=== PATIENT | female | born 1950 | race Caucasian/White ===

== ENCOUNTER 2017-02-11 17:12 | Inpatient (IN) | payer OTHER ==
[2017-02-11 17:24] LABS: BASOPHIL 0.8 % (0-2.0); EOSINOPHIL 2.6 % (0-4.5); MCH 32.3 pg (25.7-33.7); MCHC 33.2 g/dl (32.0-36.0); MEAN CELL VOLUME 97.2 fl (80-96); MEAN PLT VOLUME 8.9 fl (7.5-11.1); NEUTROPHILS 66.2 % (42.8-82.8); PLATELET COUNT 253 K/MM3 (134-434); RDW 14.6 % (11.6-15.6); WHITE BLOOD COUNT 6.7 K/mm3 (4.0-10.0)
[2017-02-11 17:35] VITALS: BMI 28.3
[2017-02-11 17:36] LABS: INR 1.07 (0.82-1.09); PROTHROMBIN TIME (PATIENT) 11.8 SEC (9.98-11.88)
[2017-02-11 17:46] LABS: ALBUMIN 3.8 g/dl (3.4-5.0); ALK PHOS 70 U/L (45-117); ANION GAP 8 (8-16); BILIRUBIN,TOTAL 0.7 mg/dL (0.2-1.0); CALCIUM 8.9 mg/dL (8.5-10.1); CHOLESTEROL 120 mg/dL (50-200); CO2 31 mmol/L (21-32); CREATININE 1.5 mg/dL (0.55-1.02); GLUCOSE,RANDOM 118 mg/dL (74-106); LDL CHOLESTEROL (ONLY SJRH) 70 mg/dL (5-100); SGOT/AST 17 U/L (15-37); SGPT/ALT 17 U/L (12-78); TOT PROT 7.5 g/dl (6.4-8.2); TROPONIN I < 0.02 ng/ml (0.00-0.05)
[2017-02-11] MEDS ORDERED: ASPIRIN 81 MG CHEWABLE TABLETS PO ONE (18:22)
--- NOTE | 2017-02-11 18:22 | PDOC ---
History of Present Illness - General History Source: Patient, Family (daughter) Exam Limitations: No Limitations - History of Present Illness Initial Comments: 02/11/17 18:23 The patient is a 66 year old female with a significant past medical history of multiple TIA, [place] s/p angiogram (2011), Htn, Hld, hypothyroidism, breast CA (in remission), who presents to the ED s/p TIA-like symptoms. As per daughter, the patient was sitting in the kitchen when she slumped over and her eyes were rolling back. Daughter states the patient lost consciousness for 60 seconds. Daughter notes, once the patient regained consciousness she was out of it for 5-10 minutes. As per rosette, the patient was unable to recall the year and was barely speaking but denies slurred speech. Patient reports generalized weakness throughout her entire body and states her symptoms are similar to that of her previous TIAs. Patient denies chest pain. Patient denies focal numbness, weakness, or tingling. Denies headache. Denies changed in strength/sensation. Denies facial drooping. <Beth Shepherd - Last Filed: 02/11/17 18:22> - General History Source: Patient, Family Exam Limitations: No Limitations <Tyrone Jolley - Last Filed: 02/11/17 18:50> - General Chief Complaint: CVA/TIA Stated Complaint: POSSIBLE STROKE Time Seen by Provider: 02/11/17 17:14 Past History <Beth Shepherd - Last Filed: 02/11/17 18:22> - Past Medical History Anemia: No Asthma: No Cancer: Yes (BILATERAL BREAST CANCER) Cardiac Disorders: Yes ([place] 07/05) CVA: Yes COPD: No CHF: No Dementia: No Diabetes: No GI Disorders: Yes (DIARRHEA) Disorders: No HTN: Yes Hypercholesterolemia: Yes Liver Disease: No Seizures: No Thyroid Disease: Yes (HYPOTHYROIDISM) - Surgical History Abdominal Surgery: No Appendectomy: No Cardiac Surgery: Yes (no stent) Cholecystectomy: No Lung Surgery: No Neurologic Surgery: No Orthopedic Surgery: No - Immunization History Immunization Up to Date: Yes - Psycho/Social/Smoking Cessation Hx Anxiety: No Suicidal Ideation: No Smoking Status: No Smoking History: Never smoked Years of Tobacco Use: 0 Have you smoked in the past 12 months: No Number of Cigarettes Smoked Daily: 0 If you are a former smoker, when did you quit?: 45 YRS Hx Alcohol Use: No Drug/Substance Use Hx: No Substance Use Type: None Hx Substance Use Treatment: No <Tyrone Jolley - Last Filed: 02/11/17 18:50> - Past Medical History Allergies/Adverse Reactions: Allergies Allergy/AdvReac Type Severity Reaction Status Date / Time No Known Allergies Allergy Verified 02/11/17 17:33 Home Medications: Ambulatory Orders Aspirin [ASA -] 81 mg PO DAILY 10/22/15 Clonazepam 0.5 mg PO BID 02/11/17 Review of Systems - Review of Systems Able to Perform ROS?: Yes Comments:: 02/11/17 18:23 GENERAL/CONSTITUTIONAL: No fever or chills. No weakness. HEAD, EYES, EARS, NOSE AND THROAT: No change in vision. No ear pain or discharge. No sore throat. CARDIOVASCULAR: No chest pain or shortness of breath. RESPIRATORY: No cough, wheezing, or hemoptysis. GASTROINTESTINAL: No nausea, vomiting, diarrhea or constipation. GENITOURINARY: No dysuria, frequency, or change in urination. MUSCULOSKELETAL: No joint or muscle swelling or pain. No neck or back pain. SKIN: No rash NEUROLOGIC:+ loss of consciousness, difficulty speaking, change in behaviour. No headache, vertigo, or change in strength/sensation. ENDOCRINE: No increased thirst. No abnormal weight change. HEMATOLOGIC/LYMPHATIC: No anemia, easy bleeding, or history of blood clots. ALLERGIC/IMMUNOLOGIC: No hives or skin allergy. <Beth Shepherd - Last Filed: 02/11/17 18:22> *Physical Exam - Vital Signs Last Vital Signs Temp Pulse Resp BP Pulse Ox 97.8 F 46 L 18 97/50 95 02/11/17 17:33 02/11/17 17:33 02/11/17 17:33 02/11/17 17:33 02/11/17 17:33 - Physical Exam Comments: 02/11/17 18:23 GENERAL: Awake, alert, and fully oriented, in no acute distress HEAD: No signs of trauma EYES: PERRLA, EOMI, sclera anicteric, conjunctiva clear ENT: Auricles normal inspection, hearing grossly normal, nares patent, oropharynx clear without exudates. Moist mucosa NECK: Normal ROM, supple, no lymphadenopathy, JVD, or masses LUNGS: Breath sounds equal, clear to auscultation bilaterally. No wheezes, and no crackles HEART: Regular rate and rhythm, normal S1 and S2, no murmurs, rubs or gallops ABDOMEN: Soft, nontender, normoactive bowel sounds. No guarding, no rebound. No masses EXTREMITIES: Normal range of motion, no edema. No clubbing or cyanosis. No cords, erythema, or tenderness NEUROLOGICAL: + Cranial nerves II through XII intact. 5/5 strength throughout all extremities, sensation intact throughout Normal speech, normal gait SKIN:+ s/p bilateral mastectomy. Warm, Dry, normal turgor, no rashes or lesions noted. <Beth Shepherd - Last Filed: 02/11/17 18:22> - Vital Signs Last Vital Signs Temp Pulse Resp BP Pulse Ox 97.8 F 46 L 18 97/50 95 02/11/17 17:33 02/11/17 17:33 02/11/17 17:33 02/11/17 17:33 02/11/17 17:33 <Tyrone Jolley - Last Filed: 02/11/17 18:50> NIH Stroke Scale - Last Known Well Date/Time & Onset Date Last Known Well: 02/11/17 Time Last Known Well: 16:50 - Initial Evaluation Level of consciousness: Alert Ask patient the month and their age: Answers both correctly Ask patient to open & close eyes; make fist and let go: Obeys both correctly Best gaze (horizontal eye movement): Normal Visual field testing: No visual field loss Facial paresis (Show teeth/raise eyebrows/close eyes tight): Normal symmetrical movement Motor Function: Left Arm: Normal Motor Function: Right Arm: Normal (extends arm 90 (or 45) degrees for 10 seconds without drift Motor Function: Left Leg: Normal (extends leg 30 degrees for 5 seconds without drift) Motor Function: Right Leg: Normal (extends leg 30 degrees for 5 seconds without drift) Limb Ataxia: No ataxia Sensory(Use pinprick test arms,legs,trunk,face/side to side): Normal Best language (Describe picture, name items, read sentences): No Aphasia Dysarthria (read several words): Normal articulation Extinction and Inattention: No abnormality - Total Score NIH Stroke Scale Score: 0 <Tyrone Jolley - Last Filed: 02/11/17 18:50> tPA Exclusion Checklist 0-3hr - Time Elapsed Date last known well: 02/11/17 Time last known well: 16:50 Elaspsed time: Day(s) and 2 Hour(s) and 0 Minutes - Thrombolytic Therapy Candidate Is the patient eligible for Thrombolytic Therapy?: No - Relative Exclusion Criteria 0-3h Rapid improvement: Yes Stroke severity too mild: Yes - Ineligibility reason(s) Reasons No tPA given: See reason(s) noted above <Tyrone Jolley - Last Filed: 02/11/17 18:50> Heart Score/ECG Review #1 ECG reviewed & interpreted by me at: 17:35 02/11/17 18:49 NSR 48, T wave flat avL, TWI V2-V3, no std/melyssa, normal axis, normal intervals, QTC 414 msec <Tyrone Jolley - Last Filed: 02/11/17 18:50> Discharge Disposition <Beth Shepherd - Last Filed: 02/11/17 18:22> - Discharge Dispostion Last Admission D/C Date: 11/12/15 Admit: Yes <Tyrone Jolley - Last Filed: 02/11/17 18:50> - Diagnosis Syncope Qualifiers: Syncope type: unspecified Qualified Code(s): R55 - Syncope and collapse - Referrals Referrals: Rom Dickens MD [Primary Care Provider] -
[2017-02-11 18:45] LABS: URINE APPEARANCE CLEAR; URINE BILIRUBIN NEGATIVE (NEGATIVE); URINE BLOOD NEGATIVE (NEGATIVE); URINE COLOR YELLOW; URINE GLUCOSE (UA) NEGATIVE (NEGATIVE); URINE KETONE NEGATIVE (NEGATIVE); URINE NITRITE POSITIVE (NEGATIVE); URINE PROTEIN NEGATIVE (NEGATIVE); URINE UROBILINOGEN NEGATIVE E.U./dl (0.2-1.0)
[2017-02-11 18:50] LABS: URINE LEUK ESTERASE 2+ (NEGATIVE)
[2017-02-11 18:51] LABS: URINE BACTERIA RARE /hpf (NONE SEEN); URINE HYALINE CAST 6 /lpf; URINE MUCUS RARE; URINE RBC 1 /hpf (0-3); URINE WBC 51 /hpf (3-5)
[2017-02-11] MEDS ORDERED: ASPIRIN 81 MG CHEWABLE TABLETS ONE (19:28)
--- NOTE | 2017-02-11 19:52 | HP ---
CHIEF COMPLAINT: LOC, syncope PCP: [facility] HISTORY OF PRESENT ILLNESS: This is a 66 year old female with a PMH of multiple TIAs, [place] 2011, HTN, HLD, hypothyroidism, BrCA who presented to the s/p episode of LOC. Daughter reports pt was sitting in a chair and she suddenly slumped over, eyes rolled back with LOC x 60 sec and then when came to was out of it for 5-10 min. Upon exam, pt with no complaints; denies dizziness, chest pain, palpitations, abdominal pain, N/V/D. ECG done in ED revealed sinus deena @ 48bpm. Pt does report some dysuria approx 2 weeks ago. ER course was notable for: (1) HR 48 on ECG (2) BP low (3) CT head without acute changes Recent Travel: pt denies PAST MEDICAL HISTORY: multiple TIAs 2016 [place] 2011 s/p angiogram without angioplasty or stent placement HTN HLD hypothyroidism BrCA chronic diarrhea, normal colonoscopy 2013 PAST SURGICAL HISTORY: B/L mastectomy hysterectomy Social History: Smoking: pt denies Alcohol: pt denies Drugs: pt denies Family History: father- cancer unk with mets. mother- lung cancer Allergies No Known Allergies Allergy (Verified 02/11/17 17:33) Home Medications 3 Medication Instructions Recorded Aspirin [ASA -] 81 mg PO DAILY 10/22/15 Clonazepam 0.5 mg PO BID 02/11/17 LEVOTHYROXINE 100MCG PO DAILY Nebivolol HCL 10 mg PO DAILY VALSARTAN 320 MG PO DAILY RALOXIFENE 60 MG PO DAILY HCTZ 12.5 MG PO DAILY RANEXA 1000MG PO DAILY TRAZODONE 300MG PO HS LIPITOR 40MG PO DAILY REVIEW OF SYSTEMS CONSTITUTIONAL: Present: generalized weakness Absent: fever, chills, diaphoresis, malaise, loss of appetite, weight change HEENT: Absent: rhinorrhea, nasal congestion, throat pain, throat swelling, difficulty swallowing, mouth swelling, ear pain, eye pain, visual changes CARDIOVASCULAR: Present: syncope Absent: chest pain, palpitations, irregular heart rate, lightheadedness, peripheral edema RESPIRATORY: Absent: cough, shortness of breath, dyspnea with exertion, orthopnea, wheezing, stridor, hemoptysis GASTROINTESTINAL: Absent: abdominal pain, abdominal distension, nausea, vomiting, diarrhea, constipation, melena, hematochezia GENITOURINARY: Absent: dysuria, frequency, urgency, hesitancy, hematuria, flank pain, genital pain MUSCULOSKELETAL: Absent: myalgia, arthralgia, joint swelling, back pain, neck pain SKIN: Absent: rash, itching, pallor HEMATOLOGIC/IMMUNOLOGIC: Absent: easy bleeding, easy bruising, lymphadenopathy, frequent infections ENDOCRINE: Absent: unexplained weight gain, unexplained weight loss, heat intolerance, cold intolerance NEUROLOGIC: Present: transient LOC Absent: headache, focal weakness or paresthesias, dizziness, unsteady gait, seizure, mental status changes, bladder or bowel incontinence PSYCHIATRIC: Absent: anxiety, depression, suicidal or homicidal ideation, hallucinations. PHYSICAL EXAMINATION Vital Signs - 24 hr 3 02/11/17 02/11/17 02/11/17 17:30 17:33 18:24 Temperature 97.8 F Pulse Rate 46 L Pulse Rate [ 52 L Apical] Respiratory 18 18 Rate Blood Pressure 97/50 Blood Pressure 108/63 [Left Arm] O2 Sat by Pulse 98 95 99 Oximetry (%) GENERAL: Awake, alert, and fully oriented, in no acute distress. HEAD: Normal with no signs of trauma. EYES: Pupils equal, round and reactive to light, extraocular movements intact, sclera anicteric, conjunctiva clear. No lid lag. EARS, NOSE, THROAT: Ears normal, nares patent, oropharynx clear without exudates. Moist mucous membranes. NECK: Normal range of motion, supple without lymphadenopathy, JVD, or masses. LUNGS: Breath sounds equal, clear to auscultation bilaterally. No wheezes, and no crackles. No accessory muscle use. HEART: Regular rate and rhythm, normal S1 and S2 without murmur, rub or gallop. ABDOMEN: Soft, nontender, not distended, normoactive bowel sounds, no guarding, no rebound, no masses. No hepatomegaly or splenomegaly. MUSCULOSKELETAL: Normal range of motion at all joints. No bony deformities or tenderness. No CVA tenderness. UPPER EXTREMITIES: 2+ pulses, warm, well-perfused. No cyanosis. No clubbing. No peripheral edema. LOWER EXTREMITIES: 2+ pulses, warm, well-perfused. No calf tenderness. No peripheral edema. NEUROLOGICAL: Cranial nerves II-XII intact. Normal speech. Gait not observed. No pronator drift. Muscle strength 5/5 all extremities PSYCHIATRIC: Cooperative. Good eye contact. Appropriate mood and affect. SKIN: Warm, dry, normal turgor, no rashes or lesions noted, normal capillary refill. Laboratory Results - last 24 hr 3 02/11/17 02/11/17 02/11/17 17:20 17:20 17:20 WBC 6.7 RBC 3.86 Hgb 12.5 D Hct 37.6 MCV 97.2 H MCHC 33.2 RDW 14.6 Plt Count 253 MPV 8.9 Neutrophils % 66.2 Lymphocytes % 24.7 D Monocytes % 5.7 Eosinophils % 2.6 Basophils % 0.8 INR 1.07 Sodium 141 Potassium 4.1 Chloride 102 Carbon Dioxide 31 Anion Gap 8 BUN 19 H Creatinine 1.5 H Creat Clearance w eGFR 34.53 Random Glucose 118 H D Calcium 8.9 Total Bilirubin 0.7 AST 17 ALT 17 D Alkaline Phosphatase 70 Creatine Kinase 23 L Troponin I < 0.02 Total Protein 7.5 Albumin 3.8 Triglycerides 176 H Cholesterol 120 Total LDL Cholesterol 70 HDL Cholesterol 39 L Urine Color Urine Appearance Urine pH Urine Protein Urine Glucose (UA) Urine Ketones Urine Blood Urine Nitrite Urine Bilirubin Urine Urobilinogen Ur Leukocyte Esterase Urine RBC Urine WBC Ur Epithelial Cells Urine Bacteria Hyaline Casts Urine Mucus 3 Urine Color Yellow 02/11/17 18:30 Urine Appearance Clear 02/11/17 18:30 Urine pH 5.0 (5.0-8.0) 02/11/17 18:30 Urine Protein Negative (NEGATIVE) 02/11/17 18:30 Urine Glucose (UA) Negative (NEGATIVE) 02/11/17 18:30 Urine Ketones Negative (NEGATIVE) 02/11/17 18:30 Urine Blood Negative (NEGATIVE) 02/11/17 18:30 Urine Nitrite Positive (NEGATIVE) 02/11/17 18:30 Urine Bilirubin Negative (NEGATIVE) 02/11/17 18:30 Ur Leukocyte Esterase 2+ (NEGATIVE) H 02/11/17 18:30 Urine RBC 1 /hpf (0-3) 02/11/17 18:30 Urine WBC 51 /hpf (3-5) 02/11/17 18:30 Ur Epithelial Cells Rare /hpf (FEW) 02/11/17 18:30 Urine Bacteria Rare /hpf (NONE SEEN) 02/11/17 18:30 Urine Mucus Rare 02/11/17 18:30 CT head without contrast IMAGES: 73 DATE OF SERVICE: 2017-02-11 17:18:20.0 HISTORY:Rule out CVA, TIA. COMPARISON: None. FINDINGS: 1. White matter changes are most suggestive of chronic post ischemic demyelination/small vessel disease. However, a focus of acute white matter infarct cannot entirely be excluded. There are bilateral basal ganglia lacunar infarcts of indeterminate age. There is no evidence of intracranial hemorrhage or mass effect. 2. Ventricular size is concordant with the degree of atrophy. 3. The visualized portions of the orbits, paranasal and mastoid sinuses are unremarkable. This study was discussed with Dr. Jolley at 5:30 PM February 11, 2017. THIS DOCUMENT HAS BEEN ELECTRONICALLY SIGNED Gela Shelton MD 02/11/2017 17:32 EST Lynn. Please call [facility] Mechanical Technician [phone] ([phone]) with questions. ECG: Sinus bradycardia rate 48, QTC 414, nonspecific ST abnormality, T wave flattening Lead 3, V3, Inverted T wave lead 2 ?normal variant ASSESSMENT/PLAN: 66yF with PMH TIAs 2016, [place] 2011, HTN, HLD, hypothyroidism, BrCA presented to the ED with transient LOC x 60 sec followed by a period of confusion lasting 5- 10 minutes. She is being admitted for observation and further testing. Transient LOC r/o CVA-- - CT head with no acute changes - Neuro consult ordered, family requested Dr. Yun - MRI ordered and pending - Carotid doppler completed, results pending - ASA 243mg given in ED - cont ASA 81mg daily for now, consider increasing to 325. Sinus bradycardia - ? related to syncope - hold beta lata (bystolic) for now - cardiology consult ordered Hypotension-mild - SBP 97 on admission - bystolic held due to bradycardia - ok to restart diovan and HCTZ in AM if SBP <110 given recent episode LOC ( pt did not take her doses today) CAD - cont ranexa at 1000mg QD, cardiology consult HLD - cont home lipitor 40mg, LDL 70 GREG on CKD - cr 1.5, baseline 1.2-1.3 - gentle IV hydration tonight, NS @ 83cc/hr, repeat labs in am - Cr Cl 30.6 as per Cockcroft-Gault, renal dose all medications Hypothyroidism - cont home levothyroxine - TSH 2.98 on 07/31/16 BrCA - cont Evista DVT PPX - defer as expected LOS <48h FEN - NS @83cc/hr - repeat BMP in am - low sodium diet Dispo: Pt currently requires inpatient monitoring of her emergent condition. Visit type - Emergency Visit Emergency Visit: Yes ED Registration Date: 02/11/17 Care time: The patient presented to the Emergency Department on the above date and was hospitalized for further evaluation of their emergent condition. - New Patient This patient is new to me today: Yes Date on this admission: 02/11/17 - Critical Care Critical Care patient: No
[2017-02-11] MEDS ORDERED: CEFTRIAXONE 50 ML ONE (20:30)
[2017-02-11] MEDS: SODIUM CHLORIDE 1,000 ML IV SCH (21:45)
[2017-02-11] MEDS ORDERED: PATIENT'S OWN MEDICATION (NON-FORMULARY) (Trazodone Hcl [Trazodone Hcl] 300 MG) PO SCH (22:00)
[2017-02-11] MEDS ORDERED: PATIENT'S OWN MEDICATION (NON-FORMULARY) (Clonazepam [Clonazepam] 0.5 MG) PO SCH (22:00)
[2017-02-11] MEDS ORDERED: traZODone HCL 100 MG TABLET (FP) PO SCH (22:00)
[2017-02-11] MEDS: ATORVASTATIN CA 40 MG TABLET (FP) PO SCH (22:59)
[2017-02-11] MEDS: RANOLAZINE E.R. 1,000 MG TABLET (FP) PO SCH (22:59)
[2017-02-11] MEDS: CEFTRIAXONE 50 ML IVPB SCH (23:10)
[2017-02-11] MEDS ORDERED: traZODone HCL 50 MG TABLET (FP) ONE (23:52)
[2017-02-11] MEDS: clonazePAM 0.5 MG TABLET PO SCH (23:54)
[2017-02-12 00:34] LABS: TROPONIN I < 0.02 ng/ml (0.00-0.05)
[2017-02-12] MEDS ORDERED: PT OWN MED DRAWER 7, Y5N ONE (03:35)
[2017-02-12] MEDS: LEVOTHYROXINE NA 100 MCG TABLET (FP) PO SCH ×2 (05:47→06:25)
[2017-02-12 07:56] LABS: BASOPHIL 0.5 % (0-2.0); EOSINOPHIL 2.4 % (0-4.5); MCHC 34.1 g/dl (32.0-36.0); MEAN CELL VOLUME 96.7 fl (80-96); MEAN PLT VOLUME 8.9 fl (7.5-11.1); NEUTROPHILS 72.1 % (42.8-82.8); PLATELET COUNT 186 K/MM3 (134-434); RDW 14.8 % (11.6-15.6); WHITE BLOOD COUNT 7.6 K/mm3 (4.0-10.0)
[2017-02-12 08:34] LABS: ANION GAP 7 (8-16); CALCIUM 8.4 mg/dL (8.5-10.1); CO2 30 mmol/L (21-32); CREATININE 1.4 mg/dL (0.55-1.02); GLUCOSE,RANDOM 87 mg/dL (74-106); MAGNESIUM 2.3 mg/dL (1.8-2.4); PHOSPHOROUS 3.9 mg/dL (2.5-4.9); TROPONIN I < 0.02 ng/ml (0.00-0.05)
[2017-02-12] MEDS: VALSARTAN 160 MG TABLET (UD) PO SCH (09:38)
--- NOTE | 2017-02-12 09:40 | PN ---
Physical Exam: SUBJECTIVE: Patient seen and examined. She denies any dizziness, chest pain. Denies discomfort. Admits to having frequent episodes of dizziness @ home. OBJECTIVE: Symptomatic bradycardia? Also has hx of TIAs Orthostatics q 8 Monitor cardiac cath lab radiology technologist: currently SB 40s to 50s Brain MRI/CT scan reviewed Awaiting cardiology and neuro. Physical therapy HCTZ held secondary to GREG Vital Signs Period Temp Pulse Resp BP Sys/So Pulse Ox Last 24 Hr 97.7 F-98.1 F 49-62 18-20 100-116/49-84 97-100 GENERAL: The patient is awake, alert, and fully oriented, in no acute distress. HEAD: Normal with no signs of trauma. EYES: PERRL, extraocular movements intact, sclera anicteric, conjunctiva clear. No ptosis. ENT: Ears normal, nares patent, oropharynx clear without exudates, moist mucous membranes. NECK: Trachea midline, full range of motion, supple. LUNGS: Breath sounds equal, clear to auscultation bilaterally HEART: Sinus bradycardiac high 40s to low 50s ABDOMEN: Soft, nontender, nondistended, normoactive bowel sounds, no guarding, no rebound, no hepatosplenomegaly, no masses. EXTREMITIES: 2+ pulses, warm, well-perfused, no edema. NEUROLOGICAL: Normal speech, gait not observed. PSYCH: Normal mood, normal affect. SKIN: Warm, dry, normal turgor, no rashes or lesions noted Laboratory Results - last 24 hr 02/11/17 02/12/17 02/12/17 23:31 05:40 05:40 WBC 7.6 RBC 3.56 L Hgb 11.7 Hct 34.4 MCV 96.7 H MCHC 34.1 RDW 14.8 Plt Count 186 D MPV 8.9 Neutrophils % 72.1 Lymphocytes % 19.2 D Monocytes % 5.8 Eosinophils % 2.4 Basophils % 0.5 Sodium 143 Potassium 3.9 Chloride 106 Carbon Dioxide 30 Anion Gap 7 L BUN 21 H Creatinine 1.4 H Random Glucose 87 D Calcium 8.4 L Phosphorus 3.9 Magnesium 2.3 Creatine Kinase 21 L 19 L Troponin I < 0.02 < 0.02 Active Medications Generic Name Dose Route Start Last Admin Trade Name Freq PRN Reason Stop Dose Admin Aspirin 81 mg 02/12/17 10:00 Asa - PO DAILY TEN Atorvastatin Calcium 40 mg 02/11/17 22:00 02/11/17 22:59 Lipitor - PO Not Given HS TEN Clonazepam 0.5 mg 02/11/17 22:00 02/11/17 23:54 Klonopin - PO 0.5 mg BID TEN Administration Hydrochlorothiazide 12.5 mg 02/12/17 10:00 Hctz - PO DAILY TEN Ceftriaxone Sodium 50 mls @ 100 mls/hr 02/11/17 20:00 02/11/17 23:10 Rocephin 1gm Ivpb (Pre-Docked) IVPB 100 mls/hr DAILY TEN Administration Sodium Chloride 1,000 mls @ 83 mls/hr 02/11/17 21:45 02/11/17 21:45 Normal Saline - IV 83 mls/hr ASDIR TEN Administration Levothyroxine Sodium 100 mcg 02/12/17 07:00 02/12/17 06:25 Synthroid - PO Not Given ACBK TEN Raloxifene Hcl 60 Mg 60 mg 02/11/17 20:45 02/11/17 22:59 Tab PO Not Given DAILY TEN Ranolazine 1,000 mg 02/11/17 20:45 02/11/17 22:59 Ranexa - PO Not Given DAILY TEN Trazodone HCl 300 mg 02/11/17 22:00 02/11/17 23:54 Desyrel - PO 300 mg HS TEN Administration Valsartan 320 mg 02/12/17 10:00 Diovan - PO DAILY TEN ASSESSMENT/PLAN: Patient is a 66 year old female with a significant past medical history of TIAs , myocardial infarction, hypertension, hyperlipidemia and hypothyroidism who presented to the ER on 02/12/2016 with a syncopal episode. As per admission notes, patient had a LOC event that lasted apx 1 minutee followed by a period of confusion lasting apx 10 minutes. She is being admitted for observation and for further management of her acute condition. Neuro: Syncope - acute Assessment/Plan: TIA vs. CVA vs. seizure Initial CT with no acute changes, Brain MRI reviewed with no acute changes Carotid doppler with no evidence of hemodynamic stenosis She was given ASA in the ER and now on ASA 81mg daily Further anticoag deferred to neurology Cardiology: Symptomatic bradycardia? Assessment/Plan: On bystolic, diovan and hctz at home patient states she often feels dizzy with ambulation Will order orthostatics q 8 and monitor Cardiology notes reviewed Physical therapy when more stable Fall risk Hypertension - chronic Assessment/plan: Patient has history of HTN but now having hypotension Also on Diovan and HCTZ @ home Coronary Artery Disease - chronic Assessment/Plan: On Ranexa 1000mg daily Hyperlipidemia Assessment/Plan: on Home Lipitor Lipid panel reviewed Renal: GREG/Chronic Kidney Disease - acute on chronic Assessment/Plan: Continue NS @ 83, monitor GREG Holding HCTZ F.E.N. Fluids: NS @83cc/hr Electrolytes: monitor with bmp Nutriton: low sodium diet Prophylaxis: GI: deferred DVT: SCDs bilateraly legs Disposition. Full Code. Visit type - Emergency Visit Emergency Visit: Yes ED Registration Date: 02/11/17 Care time: The patient presented to the Emergency Department on the above date and was hospitalized for further evaluation of their emergent condition. - New Patient This patient is new to me today: Yes Date on this admission: 02/13/17 - Critical Care Critical Care patient: No - Discharge Referral Referred to [facility] Med P.C.: No
[2017-02-12] MEDS: CEFTRIAXONE 50 ML IVPB SCH (09:44)
[2017-02-12] MEDS: ASPIRIN 81 MG CHEWABLE TABLETS PO SCH (09:45)
[2017-02-12] MEDS: RANOLAZINE E.R. 1,000 MG TABLET (FP) PO SCH (09:45)
[2017-02-12] MEDS: clonazePAM 0.5 MG TABLET PO SCH ×2 (09:45→21:43)
[2017-02-12] MEDS ORDERED: VALSARTAN 320 MG PO SCH (10:00)
[2017-02-12] MEDS ORDERED: HYDROCHLOROTHIAZIDE 12.5 MG CAPSULE (FP) PO SCH ×2 (10:00)
[2017-02-12] MEDS ORDERED: VALSARTAN 160 MG TABLET (UD) PO SCH (10:00)
--- NOTE | 2017-02-12 10:27 | EKG ---
Test Reason : Blood Pressure : / mmHG Vent. Rate : 052 BPM Atrial Rate : 052 BPM P-R Int : 184 ms QRS Dur : 088 ms QT Int : 496 ms P-R-T Axes : 044 006 065 degrees QTc Int : 461 ms SINUS BRADYCARDIA CANNOT RULE OUT INFERIOR INFARCT , AGE UNDETERMINED NONSPECIFIC ST ABNORMALITY ABNORMAL ECG Confirmed by MD TAMMI, TRINIDAD ([id number]) on 02/12/2017 10:26:35 AM Referred By: TRACEY WILLETT Confirmed By:TRINIDAD CADENA MD
--- NOTE | 2017-02-12 12:38 | CON.CARD ---
Consult Consult Specialty:: Cardiology Referred by:: Hospitalist Medicine Reason for Consultation:: Syncope - History of Present Illness Chief Complaint: Syncope History of Present Illness: This is a 66 year old female with a PMH of multiple TIAs, [place] 2011, HTN, HLD, hypothyroidism, BrCA who presented after episode of LOC, following prodromal sxs of flushing, diaphoresis, visual scotoma (tunnel vision). Daughter reports pt was sitting in a chair and she suddenly slumped over, eyes rolled back with LOC x 60 sec and then when came to was out of it for 5-10 min. Patient denies chest pain, dyspnea, palpitations, orthopnea, PND or LE edema. ER course was notable for: (1) HR 48 on ECG (2) BP low (3) CT head without acute changes - History Source History Provided By: Patient Limitations to Obtaining History: No Limitations - Past Medical History ...: No - Alcohol/Substance Use Hx Alcohol Use: No - Smoking History Smoking history: Never smoked Have you smoked in the past 12 months: No Aproximately how many cigarettes per day: 0 If you are a former smoker, when did you quit?: 45 YRS - Social History ADL: Family Assistance Home Medications - Allergies Allergies/Adverse Reactions: Allergies Allergy/AdvReac Type Severity Reaction Status Date / Time No Known Allergies Allergy Verified 02/11/17 17:33 - Home Medications Home Medications: Ambulatory Orders Aspirin [ASA -] 81 mg PO DAILY 10/22/15 Clonazepam 0.5 mg PO BID 02/11/17 Review of Systems - Review of Systems Neurological: reports: Dizziness Vital Signs: Vital Signs Temperature 98.1 F 02/12/17 10:00 Pulse Rate 58 L 02/12/17 10:00 Respiratory Rate 20 02/12/17 10:00 Blood Pressure 98/56 02/12/17 10:00 O2 Sat by Pulse Oximetry (%) 97 02/12/17 06:00 Constitutional: Yes: No Distress, Calm Neck: Yes: Supple Respiratory: Yes: Regular, CTA Bilaterally Gastrointestinal: Yes: Normal Bowel Sounds, Soft Cardiovascular: Yes: Regular Rate and Rhythm JVD: No Carotid Bruit: No Murmur: Yes: Systolic Murmur, Grade 1 Edema: No - Other Data Labs, Other Data: CBC, BMP 02/12/17 05:40 05/22/17 05:40 INR, PTT INR 1.07 (0.82-1.09) 02/11/17 17:20 Troponin, BNP 02/11/17 02/12/17 23:31 05:40 Troponin I < 0.02 < 0.02 Troponin, BNP 02/11/17 02/12/17 23:31 05:40 Troponin I < 0.02 < 0.02 SB @ 52 Imaging - Results Cat Scan: Report Reviewed (CT head without contrast IMAGES: 73 DATE OF SERVICE : 2017-02-11 17:18:20.0 HISTORY:Rule out CVA, TIA. COMPARISON: None. FINDINGS: 1. White matter changes are most suggestive of chronic post ischemic demyelination/small vessel disease. However, a focus of acute white matter infarct cannot entirely be excluded. There are bilateral basal ganglia lacunar infarcts of indeterminate age. There is no evidence of intracranial hemorrhage or mass effect. 2. Ventricular size is concordant with the degree of atrophy. 3. The visualized portions of the orbits, paranasal and mastoid sinuses are unremarkable. This study was discussed with Dr. Jolley at 5:30 PM February 11, 2017. THIS DOCUMENT HAS BEEN ELECTRONICALLY SIGNED Gela Shelton MD 02/11/2017 17:32 EST M.D. Please call Imaging Scrap Preparer [phone] with questions.) MRI: Report Reviewed (Brain MRI: SVID) Problem List - Problems (1) Syncope Code(s): R55 - SYNCOPE AND COLLAPSE Qualifiers: Syncope type: unspecified Qualified Code(s): R55 - Syncope and collapse (2) CAD (coronary artery disease) Code(s): I25.10 - ATHSCL HEART DISEASE OF [place] CORONARY ARTERY W/O ANG PCTRS Qualifiers: Coronary Disease-Associated Artery/Lesion type: [place] artery [place] vs. transplanted heart: [place] heart Associated angina: without angina Qualified Code(s): I25.10 - Atherosclerotic heart disease of [place] coronary artery without angina pectoris (3) Hyperlipidemia Code(s): E78.5 - HYPERLIPIDEMIA, UNSPECIFIED Qualifiers: Hyperlipidemia type: pure hypercholesterolemia Qualified Code(s): E78.00 - Pure hypercholesterolemia, unspecified; E78.0 - Pure hypercholesterolemia (4) Hypertension Code(s): I10 - ESSENTIAL (PRIMARY) HYPERTENSION Qualifiers: Hypertension type: essential hypertension Qualified Code(s): I10 - Essential (primary) hypertension (5) Hypothyroid Code(s): E03.9 - HYPOTHYROIDISM, UNSPECIFIED Qualifiers: Hypothyroidism type: unspecified Qualified Code(s): E03.9 - Hypothyroidism, unspecified (6) Old myocardial infarction Code(s): I25.2 - OLD MYOCARDIAL INFARCTION Assessment/Plan ASSESSMENT: 1. Syncope with typical prodrome likely neurocardiogenic, consider medication effects 2. CAD s/p [place], angina pectoris 3. Cerebrovascular disease with h/o TIA 4. HTN/HCVD 5. Hyperlipidemia 6. Hypothyroidism 7. Sinus bradycardia 8. Breast ca 9. Acute on CKD PLAN: 1. Check orthostatic vital signs and counselled on abortive maneuvers once prodromal sxs have been experienced 2. Decrease Ranexa 500 bid, resume Bystolic and Diovan/HCT as hemodynamics tolerate once renal fxn stabilizes, continue Lipitor 40 qd and ASA 81 qd 3. Thank you for consultative opportunity
--- NOTE | 2017-02-12 14:04 | EKG ---
Test Reason : Blood Pressure : / mmHG Vent. Rate : 048 BPM Atrial Rate : 048 BPM P-R Int : 170 ms QRS Dur : 080 ms QT Int : 464 ms P-R-T Axes : 058 005 057 degrees QTc Int : 414 ms SINUS BRADYCARDIA LOW VOLTAGE QRS NONSPECIFIC ST ABNORMALITY ABNORMAL ECG NO PREVIOUS ECGS AVAILABLE Confirmed by ANTELMO MEDINA MD ([id number]) on 02/12/2017 2:04:21 PM Referred By: Confirmed By:ANTELMO MEDINA MD
[2017-02-12] MEDS ORDERED: traZODone HCL 50 MG TABLET (FP) ONE (21:22)
[2017-02-12] MEDS: SODIUM CHLORIDE 1,000 ML IV SCH (21:40)
[2017-02-12] MEDS: ATORVASTATIN CA 40 MG TABLET (FP) PO SCH (21:43)
[2017-02-12] MEDS: RANOLAZINE E.R. 500 MG TABLET (FP) PO SCH (21:43)
[2017-02-12] MEDS: traZODone HCL 50 MG TABLET (FP) PO SCH (21:44)
--- NOTE | 2017-02-12 22:46 | CONSULT ---
Consult - text type - Consultation Consultation Note: NEUROLOGY CONSULTATION is geatly appreciated: This 66 yo RH woman lives with her daughter, Joya who is present at the bedside and aides with the history. PMH sig for Breast Ca, s/p B/L mastectomies, GRANT-BSO, and chemoRx. Also HTN, hypothyroidism, ASHD, s/p [place] (2011), depression and anxiety. Joya describes 2 neurological events in Oct 2015 with slurred speech and weakness Dx as "TIA." She also describes few years of cognitive decline and progressive gait impairment with imbalance. No longer safe on stairs. Has walker but doesn't use. Meds: Ranexa, Bystolic, valsartan, L-Thyroxin, Wellbutrin XR (150 mg), trazadone (100 mg), clonazepam, ASA, lipitor, and HCTZ. Now admitted after witness Syncopal episoce. Was "Whoosy" in the morning when she got out of bed. Then, at the kitchen table became lightheaded, diaphoretic, developed micropsia and tunnel vision and lost consciousness for 3-5 mins followed by a period of confusion. No seizure activity. In ER hypotension and Bradycardia noted> MRI and CT of Brain (both reviewed): Moderate diffuse atrophy and diffuse periventricular and subcortical microvascular changes. Carotid duplex doppler: Unremarkable. RAFFI: No bruits. No head trauma. Cor reg (50's). Alopecia. NEURO: Awake, alert, Ox3. Mild OMS. Poor calcs. Recalls 2 of 3 @ 3mins. CN II-XII: Normal. Motor: No drift. Decreased AKASH's. No tremor or cogwheel rigidity. Brisk reflexes. Toes downgoing. Coord: NO FTN dystaxia Sensory: Normal Gait: Flexed, shuffling. 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 Bradyarrhythmia likely contributing. SUGGEST: Continue telemetry. Mobilize patient, OO Bed to chair and ambulating with PT and walker. Follow orthostatic VS. Consider observation off Beta blockers if possible. May need ambulatory, Out Pt, 72 hour halter or Longer. Would benefit from out pt Rx of memory loss but cannot use centrally acting Cholinesterase inhibitors in presence of bradyarrhythmia. Check B12, TSH, RPR, Thank you very much, Alvaro Yun MD
[2017-02-13] MEDS: LEVOTHYROXINE NA 100 MCG TABLET (FP) PO SCH (06:15)
[2017-02-13 07:08] LABS: BASOPHIL 0.6 % (0-2.0); MCH 33.1 pg (25.7-33.7); MCHC 33.7 g/dl (32.0-36.0); MEAN CELL VOLUME 98.1 fl (80-96); MEAN PLT VOLUME 8.8 fl (7.5-11.1); PLATELET COUNT 145 K/MM3 (134-434); RDW 14.5 % (11.6-15.6); WHITE BLOOD COUNT 4.6 K/mm3 (4.0-10.0)
[2017-02-13 08:20] LABS: ALBUMIN 2.6 g/dl (3.4-5.0); BILIRUBIN,TOTAL 0.4 mg/dL (0.2-1.0); CALCIUM 7.1 mg/dL (8.5-10.1); COCKROFT - GAULT 61.6845; TOT PROT 5.5 g/dl (6.4-8.2)
[2017-02-13] MEDS ORDERED: DEXTROSE 5%-WATER - 1,000 ML IV SCH (09:45)
[2017-02-13] MEDS ORDERED: ONDANSETRON 4 MG/2 ML VIAL IVPB PRN (09:55)
[2017-02-13 10:16] LABS: THYROID STIMULATING HORMONE 1.63 uIU/ml (0.358-3.74)
[2017-02-13] MEDS: VALSARTAN 160 MG TABLET (UD) PO SCH (10:30)
[2017-02-13] MEDS: ASPIRIN 81 MG CHEWABLE TABLETS PO SCH (11:54)
[2017-02-13] MEDS: clonazePAM 0.5 MG TABLET PO SCH ×2 (11:55→21:24)
[2017-02-13] MEDS: CEFTRIAXONE 50 ML IVPB SCH (11:56)
[2017-02-13] MEDS: RANOLAZINE E.R. 500 MG TABLET (FP) PO SCH ×2 (11:56→21:26)
--- NOTE | 2017-02-13 12:54 | PN ---
Progress Note, Physician Chief Complaint: Not in distress History of Present Illness: Patient was seen and examined. Awake and alert. Chart was reviewed Denies chest pain, SOB or palpitations - Current Medication List Current Medications: Active Medications Aspirin (Asa -) 81 mg PO DAILY COUNT [facility]CLUD[facility] Last Admin: 02/13/17 11:54 Dose: 81 mg Atorvastatin Calcium (Lipitor -) 40 mg PO HS COUNT [facility]CLUD[facility] Last Admin: 02/12/17 21:43 Dose: 40 mg Clonazepam (Klonopin -) 0.5 mg PO BID COUNT [facility]CLUDES [facility] Last Admin: 02/13/17 11:55 Dose: Not Given Cyanocobalamin (Vitamin B12 -) 500 mcg PO DAILY COUNT INCLUDES [facility] Ceftriaxone Sodium (Rocephin 1gm Ivpb (Pre-Docked)) 50 mls @ 100 mls/hr IVPB DAILY COUNT [facility]CLUDES [facility] Last Admin: 02/13/17 11:56 Dose: 100 mls/hr Dextrose (D5w -) 1,000 mls @ 42 mls/hr IV ASDIR COUNT INCLUDES [facility] Last Admin: 02/13/17 10:00 Dose: 42 mls/hr Levothyroxine Sodium (Synthroid -) 100 mcg PO ACBK COUNT [facility]CLUDES [facility] Last Admin: 02/13/17 06:15 Dose: 100 mcg Raloxifene Hcl 60 Mg (Tab) 60 mg PO DAILY COUNT [facility]CLUD[facility] Last Admin: 02/13/17 12:01 Dose: 60 mg Ondansetron HCl (Zofran Injection) 4 mg IVPB Q6H PRN PRN Reason: NAUSEA Ranolazine (Ranexa -) 500 mg PO BID COUNT [facility]CLUD[facility] Last Admin: 02/13/17 11:56 Dose: 500 mg Trazodone HCl (Desyrel -) 300 mg PO [facility] Last Admin: 02/12/17 21:44 Dose: 300 mg Valsartan (Diovan -) 320 mg PO DAILY COUNT [facility]CLUD[facility] Last Admin: 02/12/17 09:38 Dose: Not Given - Objective Vital Signs: Vital Signs Temperature 97.9 F 02/13/17 06:00 Pulse Rate 57 L 02/13/17 06:18 Respiratory Rate 18 02/13/17 06:18 Blood Pressure 114/55 02/13/17 06:18 O2 Sat by Pulse Oximetry (%) 94 L 02/12/17 22:00 Neck: Yes: Supple Cardiovascular: Yes: Regular Rate and Rhythm, S1, S2. No: Murmur Respiratory: Yes: CTA Bilaterally Gastrointestinal: Yes: Normal Bowel Sounds, Soft. No: Tenderness Edema: No Additional Findings/Remarks: - Review of Systems Constitutional: denies: Chills, Fever Cardiovascular: denies: Chest Pain, Shortness of Breath. denies: Palpitations Respiratory: denies: SOB, SOB on Exertion. denies: Cough, Hemoptysis, Orthopnea , PND Gastrointestinal: denies: Abdominal Pain, Constipation, Diarrhea, Melena, Nausea , Rectal Bleeding, Vomiting Genitourinary: denies: Dysuria Musculoskeletal: denies: Joint Pain Neurological: denies: Tremors. denies: Dizziness, Headache, Seizure, Syncope Labs: CBC, BMP 02/13/17 05:35 02/13/17 05:35 INR, PTT INR 1.07 (0.82-1.09) 02/11/17 17:20 Problem List - Problems (1) Syncope Code(s): R55 - SYNCOPE AND COLLAPSE Qualifiers: Syncope type: unspecified Qualified Code(s): R55 - Syncope and collapse (2) Urinary tract infection Code(s): N39.0 - URINARY TRACT INFECTION, SITE NOT SPECIFIED Qualifiers: Urinary tract infection type: acute cystitis Hematuria presence: with hematuria Qualified Code(s): N30.01 - Acute cystitis with hematuria (3) CAD (coronary artery disease) Code(s): I25.10 - ATHSCL HEART DISEASE OF [place] CORONARY ARTERY W/O ANG PCTRS Qualifiers: Coronary Disease-Associated Artery/Lesion type: [place] artery [place] vs. transplanted heart: [place] heart Associated angina: without angina Qualified Code(s): I25.10 - Atherosclerotic heart disease of [place] coronary artery without angina pectoris (4) Hyperlipidemia Code(s): E78.5 - HYPERLIPIDEMIA, UNSPECIFIED Qualifiers: Hyperlipidemia type: pure hypercholesterolemia Qualified Code(s): E78.00 - Pure hypercholesterolemia, unspecified; E78.0 - Pure hypercholesterolemia (5) Hypertension Code(s): I10 - ESSENTIAL (PRIMARY) HYPERTENSION Qualifiers: Hypertension type: essential hypertension Qualified Code(s): I10 - Essential (primary) hypertension (6) Hypothyroid Code(s): E03.9 - HYPOTHYROIDISM, UNSPECIFIED Qualifiers: Hypothyroidism type: unspecified Qualified Code(s): E03.9 - Hypothyroidism, unspecified Assessment/Plan 1. Syncope with typical prodrome possibly neurocardiogenic 2. CAD s/p [place], angina pectoris 3. Cerebrovascular disease with h/o TIA 4. HTN/HCVD 5. Hyperlipidemia 6. Hypothyroidism 7. Sinus bradycardia 8. Breast ca 9. Acute on CKD PLAN: 1. Check BP for orthostasis 2. Continue Ranexa and Diovan as hemodynamics tolerate. Continue Lipitor and ASA 3. Currently not on Bystolic in view of bradycardia 4. May need further cardiac monitoring as outpatient. No need for further intervention at this time. Further plans are to follow Indio Henderson MD
[2017-02-13] MEDS: CYANOCOBALAMIN 1,000 MCG TABLET (FP) PO SCH (13:25)
[2017-02-13] MEDS: LACTOBACILLUS ACIDOPHILUS 1 EACH TAB (FP) PO SCH (13:47)
--- NOTE | 2017-02-13 15:00 | PN ---
Physical Exam: SUBJECTIVE: Patient seen and examined. She denies any dizziness, chest pain. Denies discomfort. Admits to having frequent episodes of dizziness @ home. Having nausea this morning OBJECTIVE: NA 149 with a.m. labs, repeat lab after d5 ivf 142 B12 levels low, started on b12 500mcg daily TSH within normal limits Will repeat head ct in a.m. GREG improved with IVF Vital Signs Period Temp Pulse Resp BP Sys/So Pulse Ox Last 24 Hr 97.8 F-99.4 F 52-62 16-18 90-134/55-72 94 GENERAL: The patient is awake, alert, and fully oriented, in no acute distress. HEAD: Normal with no signs of trauma. EYES: PERRL, extraocular movements intact, sclera anicteric, conjunctiva clear. No ptosis. ENT: Ears normal, nares patent, oropharynx clear without exudates, moist mucous membranes. NECK: Trachea midline, full range of motion, supple. LUNGS: Breath sounds equal, clear to auscultation bilaterally HEART: Sinus bradycardiac high 40s to low 50s ABDOMEN: Soft, nontender, nondistended, normoactive bowel sounds, no guarding, no rebound, no hepatosplenomegaly, no masses. EXTREMITIES: 2+ pulses, warm, well-perfused, no edema. NEUROLOGICAL: Normal speech, gait not observed. PSYCH: Normal mood, normal affect. SKIN: Warm, dry, normal turgor, no rashes or lesions noted Laboratory Results - last 24 hr 02/13/17 02/13/17 02/13/17 05:35 05:35 05:35 WBC 4.6 D RBC 2.91 L Hgb 9.6 L D Hct 28.6 L D MCV 98.1 H MCHC 33.7 RDW 14.5 Plt Count 145 D MPV 8.8 Neutrophils % 68.0 Lymphocytes % 22.5 Monocytes % 5.9 Eosinophils % 3.0 Basophils % 0.6 Sodium 149 H Potassium 3.8 Chloride 114 H Carbon Dioxide 25 Anion Gap 10 BUN 19 H Creatinine 1.0 D Creat Clearance w eGFR 55.14 Random Glucose 70 L Hemoglobin A1c % Calcium 7.1 L Total Bilirubin 0.4 D AST 9 L D ALT 10 L D Alkaline Phosphatase 50 D Total Protein 5.5 L D Albumin 2.6 L D Vitamin B12 140 L Cancelled TSH 1.63 D Cancelled RPR Titer 02/13/17 02/13/17 02/13/17 05:35 05:35 13:15 WBC RBC Hgb Hct MCV MCHC RDW Plt Count MPV Neutrophils % Lymphocytes % Monocytes % Eosinophils % Basophils % Sodium 142 Potassium Chloride Carbon Dioxide Anion Gap BUN Creatinine Creat Clearance w eGFR Random Glucose Hemoglobin A1c % 4.9 D Calcium Total Bilirubin AST ALT Alkaline Phosphatase Total Protein Albumin Vitamin B12 TSH RPR Titer Nonreactive Active Medications Generic Name Dose Route Start Last Admin Trade Name Freq PRN Reason Stop Dose Admin Aspirin 81 mg 02/12/17 10:00 02/13/17 11:54 Asa - PO 81 mg DAILY TEN Administration Atorvastatin Calcium 40 mg 02/11/17 22:00 02/12/17 21:43 Lipitor - PO 40 mg HS TEN Administration Clonazepam 0.5 mg 02/11/17 22:00 02/13/17 11:55 Klonopin - PO Not Given BID TEN Cyanocobalamin 500 mcg 02/13/17 12:30 02/13/17 13:25 Vitamin B12 - PO 500 mcg DAILY TEN Administration Ceftriaxone Sodium 50 mls @ 100 mls/hr 02/11/17 20:00 02/13/17 11:56 Rocephin 1gm Ivpb (Pre-Docked) IVPB 100 mls/hr DAILY TEN Administration Dextrose 1,000 mls @ 42 mls/hr 02/13/17 09:45 02/13/17 10:00 D5w - IV 42 mls/hr ASDIR TEN Administration Lactobacillus Acidophilus 1 tab 02/13/17 13:45 02/13/17 13:47 Bacid - PO 1 tab DAILY TEN Administration Levothyroxine Sodium 100 mcg 02/12/17 07:00 02/13/17 06:15 Synthroid - PO 100 mcg ACBK TEN Administration Raloxifene Hcl 60 Mg 60 mg 02/11/17 20:45 02/13/17 12:01 Tab PO 60 mg DAILY TEN Administration Ondansetron HCl 4 mg 02/13/17 09:55 Zofran Injection IVPB Q6H PRN NAUSEA Ranolazine 500 mg 02/12/17 22:00 02/13/17 11:56 Ranexa - PO 500 mg BID TEN Administration Trazodone HCl 300 mg 02/12/17 21:43 02/12/17 21:44 Desyrel - PO 300 mg HS TEN Administration Valsartan 320 mg 02/12/17 10:00 02/13/17 10:30 Diovan - PO Not Given DAILY TEN ASSESSMENT/PLAN: Patient is a 66 year old female with a significant past medical history of TIAs , myocardial infarction, hypertension, hyperlipidemia and hypothyroidism who presented to the ER on 02/12/2016 with a syncopal episode. As per admission notes, patient had a LOC event that lasted apx 1 minutee followed by a period of confusion lasting apx 10 minutes. She is being admitted for observation and for further management of her acute condition. Neuro: Syncope - acute Assessment/Plan: TIA vs. CVA vs. seizure Initial CT with no acute changes, Brain MRI reviewed with no acute changes Will repeat Head CT in a.m., Carotid doppler with no evidence of hemodynamic stenosis Neurology notes reviewed On ASA 81mg daily Consider EEG Further anticoag deferred to neurology/cardiology Cardiology: Symptomatic bradycardia? - acute Assessment/Plan: patient states she often feels dizzy with ambulation On bystolic, diovan and hctz at home Diovan held this morning secondary to hypotension Bystolic on hold secondary to bradycardia HCTZ on hold secondary to GREG which is resolving + orthostatics noted Cardiology notes reviewed Physical therapy ordered Fall risk Hypertension - chronic Assessment/plan: Patient has history of HTN but now having hypotension will add parameters to BP meds Coronary Artery Disease - chronic Assessment/Plan: On Ranexa Hyperlipidemia Assessment/Plan: on Home Lipitor Lipid panel reviewed Endocrine - hmgaq1 4.9, not diabetic Renal: GREG/Chronic Kidney Disease - resolved Assessment/Plan: if stable with a.m. labs, re-start hctz if cleared by cardiology UTI + lactose ferment. irma. on urine culture On Ceftriaxone (day 2) F.E.N. Fluids: tolerating PO Electrolytes: monitor with bmp Nutriton: low sodium diet Prophylaxis: GI: acidophilis DVT: SCDs bilateral legs Disposition. Full Code. Telemonitoring Visit type - Emergency Visit Emergency Visit: Yes ED Registration Date: 02/11/17 Care time: The patient presented to the Emergency Department on the above date and was hospitalized for further evaluation of their emergent condition. - New Patient This patient is new to me today: No - Critical Care Critical Care patient: No - Discharge Referral Referred to [facility] No
[2017-02-13] MEDS ORDERED: SODIUM CHLORIDE 1,000 ML IV SCH (19:00)
[2017-02-13] MEDS: ATORVASTATIN CA 40 MG TABLET (FP) PO SCH (21:24)
[2017-02-13] MEDS: traZODone HCL 50 MG TABLET (FP) PO SCH (21:24)
[2017-02-14] MEDS: LEVOTHYROXINE NA 100 MCG TABLET (FP) PO SCH (06:22)
[2017-02-14 07:50] LABS: BASOPHIL 0.6 % (0-2.0); EOSINOPHIL 3.7 % (0-4.5); MCH 33.2 pg (25.7-33.7); MCHC 34.2 g/dl (32.0-36.0); MEAN CELL VOLUME 96.9 fl (80-96); MEAN PLT VOLUME 8.9 fl (7.5-11.1); NEUTROPHILS 66.8 % (42.8-82.8); PLATELET COUNT 168 K/MM3 (134-434); RDW 14.7 % (11.6-15.6); WHITE BLOOD COUNT 5.8 K/mm3 (4.0-10.0)
[2017-02-14 09:09] LABS: ALBUMIN 3.1 g/dl (3.4-5.0); BILIRUBIN,TOTAL 0.5 mg/dL (0.2-1.0); CALCIUM 8.3 mg/dL (8.5-10.1); CREATININE 1.1 mg/dL (0.55-1.02)
[2017-02-14] MEDS ORDERED: PT OWN MED DRAWER 7, Y5N ONE ×2 (09:11→13:54)
[2017-02-14] MEDS: VALSARTAN 160 MG TABLET (UD) PO SCH (09:14)
[2017-02-14] MEDS: LACTOBACILLUS ACIDOPHILUS 1 EACH TAB (FP) PO SCH (09:15)
[2017-02-14] MEDS: clonazePAM 0.5 MG TABLET PO SCH ×2 (09:15→22:53)
[2017-02-14] MEDS: ASPIRIN 81 MG CHEWABLE TABLETS PO SCH (09:15)
[2017-02-14] MEDS: RANOLAZINE E.R. 500 MG TABLET (FP) PO SCH ×2 (09:15→22:43)
[2017-02-14] MEDS: CYANOCOBALAMIN 1,000 MCG TABLET (FP) PO SCH (09:15)
[2017-02-14] MEDS: CEFTRIAXONE 50 ML IVPB SCH (09:17)
--- NOTE | 2017-02-14 10:50 | PN ---
Progress Note, Physician History of Present Illness: No further episodes of near or true syncope. - Current Medication List Current Medications: Active Medications Aspirin (Asa -) 81 mg PO DAILY [facility] Last Admin: 02/14/17 09:15 Dose: 81 mg Atorvastatin Calcium (Lipitor -) 40 mg PO HS [facility] Last Admin: 02/13/17 21:24 Dose: 40 mg Clonazepam (Klonopin -) 0.5 mg PO BID [facility] Last Admin: 02/14/17 09:15 Dose: Not Given Cyanocobalamin (Vitamin B12 -) 500 mcg PO DAILY [facility] Last Admin: 02/14/17 09:15 Dose: 500 mcg Ceftriaxone Sodium (Rocephin 1gm Ivpb (Pre-Docked)) 50 mls @ 100 mls/hr IVPB DAILY [facility] Last Admin: 02/14/17 09:17 Dose: Not Given Sodium Chloride (Normal Saline -) 1,000 mls @ 42 mls/hr IV ASDIR [facility] Last Admin: 02/13/17 21:23 Dose: 42 mls/hr Lactobacillus Acidophilus (Bacid -) 1 tab PO DAILY [facility] Last Admin: 02/14/17 09:15 Dose: 1 tab Levothyroxine Sodium (Synthroid -) 100 mcg PO ACBK [facility] Last Admin: 02/14/17 06:22 Dose: 100 mcg Raloxifene Hcl 60 Mg (Tab) 60 mg PO DAILY [facility] Last Admin: 02/14/17 09:17 Dose: 60 mg Ondansetron HCl (Zofran Injection) 4 mg IVPB Q6H PRN PRN Reason: NAUSEA Ranolazine (Ranexa -) 500 mg PO BID [facility] Last Admin: 02/14/17 09:15 Dose: 500 mg Trazodone HCl (Desyrel -) 300 mg PO HS [facility] Last Admin: 02/13/17 21:24 Dose: 300 mg Valsartan (Diovan -) 320 mg PO DAILY [facility] Last Admin: 02/14/17 09:14 Dose: Not Given - Objective Vital Signs: Vital Signs Temperature 98 F 02/14/17 02:00 Pulse Rate 55 L 02/14/17 02:00 Respiratory Rate 18 02/14/17 02:00 Blood Pressure 127/71 02/14/17 02:00 O2 Sat by Pulse Oximetry (%) 97 02/14/17 06:00 Constitutional: Yes: No Distress, Calm Neck: Yes: Supple Cardiovascular: Yes: Bradycardia Respiratory: Yes: Regular, CTA Bilaterally Gastrointestinal: Yes: Normal Bowel Sounds, Soft Edema: No Labs: CBC, BMP 02/14/17 05:38 02/14/17 05:38 INR, PTT INR 1.07 (0.82-1.09) 02/11/17 17:20 - ....Imaging EKG: Report Reviewed (Tele: SB, no events) Problem List - Problems (1) Syncope Code(s): R55 - SYNCOPE AND COLLAPSE Qualifiers: Syncope type: unspecified Qualified Code(s): R55 - Syncope and collapse (2) CAD (coronary artery disease) Code(s): I25.10 - ATHSCL HEART DISEASE OF [place] CORONARY ARTERY W/O ANG PCTRS Qualifiers: Coronary Disease-Associated Artery/Lesion type: [place] artery [place] vs. transplanted heart: [place] heart Associated angina: without angina Qualified Code(s): I25.10 - Atherosclerotic heart disease of [place] coronary artery without angina pectoris (3) Hyperlipidemia Code(s): E78.5 - HYPERLIPIDEMIA, UNSPECIFIED Qualifiers: Hyperlipidemia type: pure hypercholesterolemia Qualified Code(s): E78.00 - Pure hypercholesterolemia, unspecified; E78.0 - Pure hypercholesterolemia (4) Hypertension Code(s): I10 - ESSENTIAL (PRIMARY) HYPERTENSION Qualifiers: Hypertension type: essential hypertension Qualified Code(s): I10 - Essential (primary) hypertension (5) Hypothyroid Code(s): E03.9 - HYPOTHYROIDISM, UNSPECIFIED Qualifiers: Hypothyroidism type: unspecified Qualified Code(s): E03.9 - Hypothyroidism, unspecified (6) Old myocardial infarction Code(s): I25.2 - OLD MYOCARDIAL INFARCTION Assessment/Plan 02/12/2017 Echo: Normal LV size and fxn, mild AR 1. Syncope with typical prodrome possibly neurocardiogenic, orthostasis demonstrated 2. CAD s/p [place], angina pectoris 3. Cerebrovascular disease with h/o TIA and SVID on brain MRI 4. HTN/HCVD 5. Hyperlipidemia 6. Hypothyroidism 7. Sinus bradycardia 8. Breast ca 9. Acute on CKD PLAN: 1. Continue Ranexa 500 bid and decrease Diovan 80 qd as hemodynamics tolerate. Continue Lipitor 40 qhs and ASA 81 qd 2. Currently not on Bystolic in view of bradycardia 3. Upright tilt table testing as outpatient. No need for further intervention at this time, d/c planning.
[2017-02-14] MEDS: LEVOFLOXACIN 500 MG IVPB 100 ML IVPB SCH (13:56)
--- NOTE | 2017-02-14 16:28 | PN ---
Physical Exam: SUBJECTIVE: Patient seen and examined. She is having several episodes of diarrhea. She also c/o dysuria and increased urination from baseline. OBJECTIVE: Last Vital Signs Temp Pulse Resp BP Pulse Ox 98.3 F 64 16 105/53 92 L 02/14/17 14:20 02/14/17 14:32 02/14/17 14:32 02/14/17 14:32 02/14/17 10:00 PE Neuro: alert, awake, cn 2-12intact Pulm: CTAB CV: s1 s2 bradycardia no mrg Breast: b/l mastectomy Abd: s nt nd +bs Ext: warm, no le edema Active Medications Generic Name Dose Route Start Last Admin Trade Name Freq PRN Reason Stop Dose Admin Aspirin 81 mg 02/12/17 10:00 02/14/17 09:15 Asa - PO 81 mg DAILY TEN Administration Atorvastatin Calcium 40 mg 02/11/17 22:00 02/13/17 21:24 Lipitor - PO 40 mg HS TEN Administration Clonazepam 0.5 mg 02/11/17 22:00 02/14/17 09:15 Klonopin - PO Not Given BID TEN Cyanocobalamin 500 mcg 02/13/17 12:30 02/14/17 09:15 Vitamin B12 - PO 500 mcg DAILY TEN Administration Levofloxacin 100 mls @ 100 mls/hr 02/14/17 14:00 02/14/17 13:56 Levaquin 500 Mg Premixed Ivpb - IVPB 100 mls/hr DAILY TEN Administration Sodium Chloride 1,000 mls @ 83 mls/hr 02/14/17 16:14 Normal Saline - IV ASDIR TEN Lactobacillus Acidophilus 1 tab 02/13/17 13:45 02/14/17 09:15 Bacid - PO 1 tab DAILY TEN Administration Levothyroxine Sodium 100 mcg 02/12/17 07:00 02/14/17 06:22 Synthroid - PO 100 mcg ACBK TEN Administration Raloxifene Hcl 60 Mg 60 mg 02/11/17 20:45 02/14/17 09:17 Tab PO 60 mg DAILY TEN Administration Ranolazine 500 mg 02/12/17 22:00 02/14/17 09:15 Ranexa - PO 500 mg BID TEN Administration Trazodone HCl 300 mg 02/12/17 21:43 02/13/17 21:24 Desyrel - PO 300 mg HS TEN Administration Valsartan 80 mg 02/14/17 11:03 Diovan - PO DAILY TEN Microbiology 02/14/17 09:30 Clostridium difficile Antigen (OLE) - Final Stool Clostridium difficile Toxin Assay - Final 02/11/17 23:15 Urine Culture - Final Urine - Urine Clean Catch Serratia Odorifera 1 Assessment: 66 year old female with a PMH of multiple TIAs, [place] 2011, HTN, HLD, hypothyroidism, BrCA who presented to the s/p episode of LOC. Plan: 1. Syncope - Possible TIA, with orthostatic changes, additionally elevated cardiac meds, now reduced - Repeat head CT with no change - MRI/Carotid Doppler without significant changes - ASA 81 mg daily 2. Symptomatic bradycardia - Decrease Ranexa 500mg BID - Decrease Diovan 90mg daily - Hold bystolic - Oupt tilt table test with cardiology 3. UTI d/t serratia odorifera - Stop ceftriaxone, resistant abx - Start levaquin 500mg daily (day 1) 4. Diarrhea - C diff negative - Send stool cx and wbc - Continue IVF 83cc/hr - Bacid daily - Will consider immodium if BP persistent hypotensive 5. Hypothyroid - Synthroid 100mcg 6. s/o [place] 2011 - ASA daily Cardiology: Symptomatic bradycardia? - acute Assessment/Plan: patient states she often feels dizzy with ambulation On bystolic, diovan and hctz at home Diovan held this morning secondary to hypotension Bystolic on hold secondary to bradycardia HCTZ on hold secondary to GREG which is resolving + orthostatics noted Cardiology notes reviewed Physical therapy ordered Fall risk Hypertension - chronic Assessment/plan: Patient has history of HTN but now having hypotension will add parameters to BP meds Coronary Artery Disease - chronic Assessment/Plan: On Ranexa Hyperlipidemia Assessment/Plan: on Home Lipitor Lipid panel reviewed Endocrine - hmgaq1 4.9, not diabetic Renal: GREG/Chronic Kidney Disease - resolved Assessment/Plan: if stable with a.m. labs, re-start hctz if cleared by cardiology UTI + lactose ferment. irma. on urine culture On Ceftriaxone (day 2) F.E.N. Fluids: tolerating PO Electrolytes: monitor with bmp Nutriton: low sodium diet Prophylaxis: GI: acidophilis DVT: SCDs bilateral legs Disposition. Full Code. Telemonitoring Visit type - Emergency Visit Emergency Visit: Yes ED Registration Date: 02/14/17 Care time: The patient presented to the Emergency Department on the above date and was hospitalized for further evaluation of their emergent condition. - New Patient This patient is new to me today: Yes Date on this admission: 02/14/17 - Critical Care Critical Care patient: No
[2017-02-14] MEDS: SODIUM CHLORIDE 1,000 ML IV SCH (17:00)
[2017-02-14] MEDS: CYANOCOBALAMIN (VITAMIN B-12) 1000 MCG/1 ML VIAL IM SCH (18:04)
[2017-02-14] MEDS: ATORVASTATIN CA 40 MG TABLET (FP) PO SCH (22:43)
[2017-02-14] MEDS: traZODone HCL 50 MG TABLET (FP) PO SCH (22:43)
[2017-02-15] MEDS: LEVOTHYROXINE NA 100 MCG TABLET (FP) PO SCH (06:09)
[2017-02-15] MEDS: VALSARTAN 80 MG TABLET (UD) PO SCH (10:41)
[2017-02-15] MEDS: ASPIRIN 81 MG CHEWABLE TABLETS PO SCH (10:41)
[2017-02-15] MEDS: LACTOBACILLUS ACIDOPHILUS 1 EACH TAB (FP) PO SCH (10:41)
[2017-02-15] MEDS: LEVOFLOXACIN 500 MG IVPB 100 ML IVPB SCH (10:42)
[2017-02-15] MEDS: clonazePAM 0.5 MG TABLET PO SCH ×2 (10:42→22:32)
[2017-02-15] MEDS: CYANOCOBALAMIN 1,000 MCG TABLET (FP) PO SCH (10:43)
[2017-02-15] MEDS: RANOLAZINE E.R. 500 MG TABLET (FP) PO SCH ×2 (10:43→22:32)
[2017-02-15] MEDS: CYANOCOBALAMIN (VITAMIN B-12) 1000 MCG/1 ML VIAL IM SCH (10:44)
[2017-02-15] MEDS: BANATROL PLUS POWDER PACKET PO SCH ×3 (14:05→22:32)
--- NOTE | 2017-02-15 15:19 | PN ---
Physical Exam: SUBJECTIVE: Patient seen and examined. She continues to have lose watery stool. C diff negative. Denies palpitation, dizziness. Says this afternoon, less dysuria OBJECTIVE: Vital Signs Period Temp Pulse Resp BP Sys/So Pulse Ox Last 24 Hr 97.7 F-98.9 F 49-68 16-20 120-158/57-88 92-97 PE Neuro: alert, awake, cn 2-12intact Pulm: CTAB CV: s1 s2 rrr no mrg Breast: b/l mastectomy Abd: s nt nd +bs Ext: warm, no le edema Current Medications Generic Name Dose Route Start Last Admin Trade Name Freq PRN Reason Stop Dose Admin Aspirin 81 mg 02/12/17 10:00 02/15/17 10:41 Asa - PO 81 mg DAILY TEN Administration Atorvastatin Calcium 40 mg 02/11/17 22:00 02/14/17 22:43 Lipitor - PO 40 mg HS TEN Administration Clonazepam 0.5 mg 02/11/17 22:00 02/15/17 10:42 Klonopin - PO Not Given BID TEN Cyanocobalamin 1,000 mcg 02/14/17 16:30 02/15/17 10:44 Vitamin B12 Injection - IM Not Given DAILY TEN Cyanocobalamin 1,000 mcg 02/15/17 17:14 Vitamin B12 Injection - IM 02/15/17 17:15 ONCE ONE Levofloxacin 100 mls @ 100 mls/hr 02/14/17 14:00 02/15/17 10:42 Levaquin 500 Mg Premixed Ivpb - IVPB 100 mls/hr DAILY TEN Administration Sodium Chloride 1,000 mls @ 83 mls/hr 02/14/17 16:14 02/14/17 17:00 Normal Saline - IV 83 mls/hr ASDIR TEN Administration Lactobacillus Acidophilus 1 tab 02/13/17 13:45 02/15/17 10:41 Bacid - PO 1 tab DAILY TEN Administration Levothyroxine Sodium 100 mcg 02/12/17 07:00 02/15/17 06:09 Synthroid - PO 100 mcg ACBK TEN Administration Raloxifene Hcl 60 Mg 60 mg 02/11/17 20:45 02/15/17 10:43 Tab PO 60 mg DAILY TEN Administration Ranolazine 500 mg 02/12/17 22:00 02/15/17 10:43 Ranexa - PO 500 mg BID TEN Administration Trazodone HCl 300 mg 02/12/17 21:43 02/14/17 22:43 Desyrel - PO 300 mg HS TEN Administration Valsartan 80 mg 02/14/17 11:03 02/15/17 10:41 Diovan - PO 80 mg DAILY TEN Administration Assessment: 66 year old female with a PMH of multiple TIAs, 2011, HTN, HLD, hypothyroidism, BrCA who presented to the s/p episode of LOC. Plan: 1. Syncope - Possible TIA, with orthostatic changes, additionally elevated cardiac meds, now reduced - Repeat head CT with no change - MRI/Carotid Doppler without significant changes - ASA 81 mg daily 2. Symptomatic bradycardia - Resolved - Ranexa 500mg BID - Diovan 90mg daily - Hold bystolic - Oupt tilt table test with cardiology 3. UTI d/t serratia odorifera - Levaquin 500mg daily (day 2) 4. Diarrhea - C diff negative - Send stool cx and wbc pending - Continue IVF 83cc/hr - Bacid daily - Start Banatrol plus packets TID - BRAT diet, tomorrow lactose free 5. Hypothyroid - Synthroid 100mcg 6. hx 2011 - ASA daily 7. Vit B 12 deficiency - Vit b12 1000mcg IM Day 10/31 - Vit b 100mcg IM weekly x3 weeks Visit type - Emergency Visit Emergency Visit: Yes ED Registration Date: 02/14/17 Care time: The patient presented to the Emergency Department on the above date and was hospitalized for further evaluation of their emergent condition. - New Patient This patient is new to me today: No - Critical Care Critical Care patient: No
--- NOTE | 2017-02-15 15:47 | PN ---
Progress Note, Physician History of Present Illness: No further episodes of near or true syncope. - Current Medication List Current Medications: Active Medications Aspirin (Asa -) 81 mg PO DAILY [facility] Last Admin: 02/15/17 10:41 Dose: 81 mg Atorvastatin Calcium (Lipitor -) 40 mg PO HS [facility] Last Admin: 02/14/17 22:43 Dose: 40 mg Clonazepam (Klonopin -) 0.5 mg PO BID [facility] Last Admin: 02/15/17 10:42 Dose: Not Given Cyanocobalamin (Vitamin B12 -) 500 mcg PO DAILY [facility] Last Admin: 02/15/17 10:43 Dose: 500 mcg Cyanocobalamin (Vitamin B12 Injection -) 1,000 mcg IM DAILY [facility] Last Admin: 02/15/17 10:44 Dose: Not Given Levofloxacin (Levaquin 500 Mg Premixed Ivpb -) 100 mls @ 100 mls/hr IVPB DAILY [facility] Last Admin: 02/15/17 10:42 Dose: 100 mls/hr Sodium Chloride (Normal Saline -) 1,000 mls @ 83 mls/hr IV ASDIR [facility] Last Admin: 02/14/17 17:00 Dose: 83 mls/hr Lactobacillus Acidophilus (Bacid -) 1 tab PO DAILY [facility] Last Admin: 02/15/17 10:41 Dose: 1 tab Levothyroxine Sodium (Synthroid -) 100 mcg PO ACBK [facility] Last Admin: 02/15/17 06:09 Dose: 100 mcg Raloxifene Hcl 60 Mg (Tab) 60 mg PO DAILY [facility] Last Admin: 02/15/17 10:43 Dose: 60 mg Ranolazine (Ranexa -) 500 mg PO BID [facility] Last Admin: 02/15/17 10:43 Dose: 500 mg Trazodone HCl (Desyrel -) 300 mg PO HS [facility] Last Admin: 02/14/17 22:43 Dose: 300 mg Valsartan (Diovan -) 80 mg PO DAILY [facility] Last Admin: 02/15/17 10:41 Dose: 80 mg - Objective Vital Signs: Vital Signs Temperature 98.2 F 02/15/17 14:30 Pulse Rate 68 02/15/17 14:40 Respiratory Rate 16 02/15/17 14:40 Blood Pressure 130/73 02/15/17 14:40 O2 Sat by Pulse Oximetry (%) 97 02/15/17 10:57 Constitutional: Yes: No Distress, Calm Neck: Yes: Supple Cardiovascular: Yes: Bradycardia Respiratory: Yes: Regular, CTA Bilaterally Gastrointestinal: Yes: Normal Bowel Sounds, Soft Edema: No Labs: INR, PTT INR 1.07 (0.82-1.09) 02/11/17 17:20 - ....Imaging EKG: Report Reviewed (Tele: SB) Problem List - Problems (1) Syncope Code(s): R55 - SYNCOPE AND COLLAPSE Qualifiers: Syncope type: vasovagal syncope Qualified Code(s): R55 - Syncope and collapse (2) CAD (coronary artery disease) Code(s): I25.10 - ATHSCL HEART DISEASE OF [place] CORONARY ARTERY W/O ANG PCTRS Qualifiers: Coronary Disease-Associated Artery/Lesion type: [place] artery [place] vs. transplanted heart: [place] heart Associated angina: without angina Qualified Code(s): I25.10 - Atherosclerotic heart disease of [place] coronary artery without angina pectoris (3) Hyperlipidemia Code(s): E78.5 - HYPERLIPIDEMIA, UNSPECIFIED Qualifiers: Hyperlipidemia type: pure hypercholesterolemia Qualified Code(s): E78.00 - Pure hypercholesterolemia, unspecified; E78.0 - Pure hypercholesterolemia (4) Hypertension Code(s): I10 - ESSENTIAL (PRIMARY) HYPERTENSION Qualifiers: Hypertension type: essential hypertension Qualified Code(s): I10 - Essential (primary) hypertension (5) Hypothyroid Code(s): E03.9 - HYPOTHYROIDISM, UNSPECIFIED Qualifiers: Hypothyroidism type: unspecified Qualified Code(s): E03.9 - Hypothyroidism, unspecified (6) Old myocardial infarction Code(s): I25.2 - OLD MYOCARDIAL INFARCTION (7) Urinary tract infection Code(s): N39.0 - URINARY TRACT INFECTION, SITE NOT SPECIFIED Qualifiers: Urinary tract infection type: acute cystitis Hematuria presence: with hematuria Qualified Code(s): N30.01 - Acute cystitis with hematuria (8) Diarrhea Code(s): R19.7 - DIARRHEA, UNSPECIFIED Qualifiers: Diarrhea type: unspecified type Qualified Code(s): R19.7 - Diarrhea , unspecified Assessment/Plan 02/12/2017 Echo: Normal LV size and fxn, mild AR 1. Syncope with typical prodrome possibly neurocardiogenic, orthostasis demonstrated 2. CAD s/p [place], angina pectoris 3. Cerebrovascular disease with h/o TIA and SVID on brain MRI 4. HTN/HCVD 5. Hyperlipidemia 6. Hypothyroidism 7. Sinus bradycardia 8. Breast ca 9. Acute on CKD 10. UTI 11. Diarrhea ruled out c. diff PLAN: 1. Continue Ranexa 500 bid and decrease Diovan 80 qd as hemodynamics tolerate. Continue Lipitor 40 qhs and ASA 81 qd 2. Currently not on Bystolic in view of bradycardia 3. Upright tilt table testing as outpatient. No need for further intervention at this time 4. Complete abx course for UTI, antidiarrheal agents
[2017-02-15] MEDS ORDERED: CYANOCOBALAMIN (VITAMIN B-12) 1000 MCG/1 ML VIAL IM ONE (17:14)
[2017-02-15] MEDS: SODIUM CHLORIDE 1,000 ML IV SCH (18:09)
[2017-02-15] MEDS ORDERED: PT OWN MED DRAWER 7, Y5N ONE (22:29)
[2017-02-15] MEDS: traZODone HCL 50 MG TABLET (FP) PO SCH (22:31)
[2017-02-15] MEDS: ATORVASTATIN CA 40 MG TABLET (FP) PO SCH (22:32)
[2017-02-16] MEDS ORDERED: ACETAMINOPHEN 325 MG TABLET (FP) PO ONE (06:14)
[2017-02-16] MEDS: LEVOTHYROXINE NA 100 MCG TABLET (FP) PO SCH (06:26)
[2017-02-16] MEDS: BANATROL PLUS POWDER PACKET PO SCH (06:27)
[2017-02-16 07:34] LABS: CALCIUM 8.3 mg/dL (8.5-10.1)
[2017-02-16 07:36] LABS: COCKROFT - GAULT 61.6845; PHOSPHOROUS 3.9 mg/dL (2.5-4.9)
[2017-02-16] MEDS: ASPIRIN 81 MG CHEWABLE TABLETS PO SCH (09:24)
[2017-02-16] MEDS: LEVOFLOXACIN 500 MG IVPB 100 ML IVPB SCH (09:24)
[2017-02-16] MEDS: VALSARTAN 80 MG TABLET (UD) PO SCH (09:24)
[2017-02-16] MEDS: RANOLAZINE E.R. 500 MG TABLET (FP) PO SCH (09:24)
[2017-02-16] MEDS: LACTOBACILLUS ACIDOPHILUS 1 EACH TAB (FP) PO SCH (09:24)
[2017-02-16] MEDS: clonazePAM 0.5 MG TABLET PO SCH (09:24)
[2017-02-16] MEDS: SODIUM CHLORIDE 1,000 ML IV SCH (09:26)
--- NOTE | 2017-02-16 10:28 | PN ---
Progress Note (short form) - Note Progress Note: S: 66 year old female, history of CAD, s/p myocardial infarction, history of CVA / TIA, hyperlipidemia, hypothyroidism, history of depression. Patient was admitted with syncope while sitting in a chair that was witnessed by her daughter. No seizures were reported, no loss of sphincter control and apparently she regained consciousness withing 60 seconds but had confusion for the next 5-10 minutes. Patient states that she has been experiencing lightheadedness with sudden change in posture accompanied by intermittent fatigue. In the ER, the blood pressure was noted to be 97/50 mmHg. Daughter states that her blood pressure was apparently 60 mm systolic prior to being transported to the hospital. No recurrence of lightheadedness, dizziness, or presyncope / syncope. No history of chest pain or discomfort. Active Medications Generic Name Dose Route Start Last Admin Trade Name Freq PRN Reason Stop Dose Admin Aspirin 81 mg 02/12/17 10:00 02/16/17 09:24 Asa - PO 81 mg DAILY TEN Administration Atorvastatin Calcium 40 mg 02/11/17 22:00 02/15/17 22:32 Lipitor - PO 40 mg HS TEN Administration Clonazepam 0.5 mg 02/11/17 22:00 02/16/17 09:24 Klonopin - PO 0.5 mg BID TEN Administration Cyanocobalamin 1,000 mcg 02/14/17 16:30 02/15/17 10:44 Vitamin B12 Injection - IM Not Given DAILY TEN Levofloxacin 100 mls @ 100 mls/hr 02/14/17 14:00 02/16/17 09:24 Levaquin 500 Mg Premixed Ivpb - IVPB 100 mls/hr DAILY TEN Administration Sodium Chloride 1,000 mls @ 83 mls/hr 02/14/17 16:14 02/16/17 09:26 Normal Saline - IV 83 mls/hr ASDIR TEN Administration Lactobacillus Acidophilus 1 tab 02/13/17 13:45 02/16/17 09:24 Bacid - PO 1 tab DAILY TEN Administration Levothyroxine Sodium 100 mcg 02/12/17 07:00 02/16/17 06:26 Synthroid - PO 100 mcg ACBK TEN Administration Raloxifene Hcl 60 Mg 60 mg 02/11/17 20:45 02/16/17 09:24 Tab PO 60 mg DAILY TEN Administration Ranolazine 500 mg 02/12/17 22:00 02/16/17 09:24 Ranexa - PO 500 mg BID TEN Administration Trazodone HCl 300 mg 02/12/17 21:43 02/15/17 22:31 Desyrel - PO 300 mg HS TEN Administration Valsartan 80 mg 02/14/17 11:03 02/16/17 09:24 Diovan - PO 80 mg DAILY TEN Administration O: 66 year old female was in no acute distress, no pallor, cyanosis, clubbing, or jaundice. Last Vital Signs Temp Pulse Resp BP Pulse Ox 98.1 F 67 20 154/104 95 02/16/17 06:00 02/16/17 06:00 02/16/17 06:00 02/16/17 06:00 02/15/17 21:00 Neck: Supple, no JVD, negative HJR, carotids were equal and upstrokes were normal, no thyromegaly appreciated. Heart: PMI was in the 5th intercostal space, no heaves or thrills, S1 and S2 were normal. Grade I/ systolic murmur at the apex. No gallops. Lungs: Clear on auscultation bilaterally. Abdomen: Soft, nontender, no hepatosplenomegaly appreciated, and no palpable masses were felt. Extremities: No calf tenderness or dependent edema. Pulses are normal. CBC, BMP 02/14/17 05:38 02/16/17 06:00 Laboratory Results - last 24 hr 02/16/17 06:00 Sodium 141 Potassium 3.7 Chloride 106 Carbon Dioxide 27 Anion Gap 8 BUN 8 D Creatinine 1.0 Random Glucose 91 Calcium 8.3 L Phosphorus 3.9 Magnesium 2.0 Impression: (1) Syncope, etiology; a. Hypotensive episode related to medications. b. Sick sinus syndrome needs to be excluded. Code(s): R55 - SYNCOPE AND COLLAPSE Qualifiers: Syncope type: vasovagal syncope Qualified Code(s): R55 - Syncope and collapse (2) Coronary artery disease Code(s): I25.10 - ATHSCL HEART DISEASE OF [place] CORONARY ARTERY W/O ANG PCTRS Qualifiers: Coronary Disease-Associated Artery/Lesion type: [place] artery [place] vs. transplanted heart: [place] heart Associated angina: without angina Qualified Code(s): I25.10 - Atherosclerotic heart disease of [place] coronary artery without angina pectoris (3) Hyperlipidemia Code(s): E78.5 - HYPERLIPIDEMIA, UNSPECIFIED Qualifiers: Hyperlipidemia type: pure hypercholesterolemia Qualified Code(s): E78.00 - Pure hypercholesterolemia, unspecified; E78.0 - Pure hypercholesterolemia (4) Hypertension Code(s): I10 - ESSENTIAL (PRIMARY) HYPERTENSION Qualifiers: Hypertension type: essential hypertension Qualified Code(s): I10 - Essential (primary) hypertension (5) Hypothyroidism Code(s): E03.9 - HYPOTHYROIDISM, UNSPECIFIED Qualifiers: Hypothyroidism type: unspecified Qualified Code(s): E03.9 - Hypothyroidism, unspecified (6) History of remote myocardial infarction Code(s): I25.2 - OLD MYOCARDIAL INFARCTION (7) Anemia, etiology to be determined, active blood loss needs to be excluded Code(s): D64.9 - ANEMIA, UNSPECIFIED (8) Vitamin B12 deficiency Code(s): E53.8 - DEFICIENCY OF OTHER SPECIFIED B GROUP VITAMINS Recommendations: 1. Work up and correction of B12 deficiency. 2. Check blood pressure supine and standing. 3. Close follow up of blood pressure as it was elevated at 6am. 4. May need titration of antihypertensive therapy. 5. Holter monitor. Attestation: Documentation prepared by Aristeo Handley, acting as medical auditor for Olu Muhammad MD.
[2017-02-16] MEDS: CYANOCOBALAMIN (VITAMIN B-12) 1000 MCG/1 ML VIAL IM SCH (10:54)
--- NOTE | 2017-02-16 11:39 | DS ---
Physical Exam: SUBJECTIVE: Patient seen and examined. She says her stool is slightly formed, she does have some vaginal discomfort OBJECTIVE: Last Vital Signs Temp Pulse Resp BP Pulse Ox 98.1 F 67 20 154/104 95 02/16/17 06:00 02/16/17 06:00 02/16/17 06:00 02/16/17 06:00 02/15/17 21:00 PE Neuro: alert, awake, cn 2-12intact Pulm: CTAB CV: s1 s2 rrr no mrg Breast: b/l mastectomy Abd: s nt nd +bs : small white cottage cheese appearing patch in vaginal vault Ext: warm, no le edema Laboratory Results - last 24 hr 02/16/17 06:00 Sodium 141 Potassium 3.7 Chloride 106 Carbon Dioxide 27 Anion Gap 8 BUN 8 D Creatinine 1.0 Random Glucose 91 Calcium 8.3 L Phosphorus 3.9 Magnesium 2.0 HOSPITAL COURSE: Date of Admission:02/14/17 Date of Discharge: 02/16/17 Minutes to complete discharge: 35 Discharge Summary Reason For Visit: SYNCOPE Current Active Problems Anemia (Acute) Diarrhea (Acute) Old myocardial infarction (Acute) Syncope (Acute) Vitamin B12 deficiency (Acute) Hospital Course: Initial Hospital Course: Briefly, this 66 year old female with a PMH of multiple TIAs, [place] 2011, HTN, HLD , hypothyroidism, BrCA who presented to the s/p episode of LOC. Daughter reported pt was sitting in a chair and she suddenly slumped over, eyes rolled back with LOC x 60 sec and then when came to was out of it for 5-10 min. ED ECG: sinus deena @ 48bpm. Pt reported some dysuria approx 2 weeks ago Subsequent Hospital Course/Progress Note/Discharge Summary by a/p: Assessment: 66 year old female with a PMH of multiple TIAs, [place] 2011, HTN, HLD, hypothyroidism, BrCA who presented to the s/p episode of LOC. Plan: 1. Syncope - Likely orthostatic changes, additionally w/ elevated cardiac meds, now reduced - Repeat head CT with no change - MRI/Carotid Doppler without significant changes - ASA 81 mg daily 2. Symptomatic bradycardia - Resolved - Continue reduced dose Ranexa 500mg BID - Continue reduced dose Diovan 80mg daily - Stop Bystolic, HCTZ - Oupt tilt table test with cardiology 3. UTI d/t serratia odorifera - Levaquin 500mg daily (day 3) for total of 7 4. Diarrhea - C diff negative - stool w/ yeast cx, no further work up per micro - Bacid daily 5. Hypothyroid - Synthroid 100mcg 6. hx [place] 2011 - ASA daily 7. Vit B 12 deficiency - Vit b12 1000mcg IM Day x7 days - Vit b 1000mcg IM weekly x3 weeks - Rechk in 1 month 8. Vaginal carole - Monatstat cream daily x7days Dispo: - Home with above meds and PCP and cardiology follow up - Pt and daughter aware and agree to above plan Condition: Stable - Instructions Diet, Activity, Other Instructions: Please return to the ED for any new, persistent, or worsening symptoms. Follow up with your PCP and cardiology in 1 week Take medications as directed on home discharge medication only, new medications have been sent to your pharmacy Continue abx as directed and until completed Continue B12 injections daily for the next 4 days Then weekly for 1 month and then follow up with Primary doctor to check your Vit B12 levels Referrals: Alvaro Yun MD [Staff Physician] - Rom Dickens MD [Primary Care Provider] - Olu Muhammad MD [Staff Physician] - Disposition: HOME - Home Medications Comprehensive Discharge Medication List: Ambulatory Orders Aspirin [ASA -] 81 mg PO DAILY 10/22/15 Clonazepam 0.5 mg PO BID 02/11/17 Cyanocobalamin Vit B-12 Inj. [Vitamin B12 Injection -] 1,000 mcg IM DAILY #8 vial 02/16/17 Lactobacillus Acidophilus [Bacid -] 1 tab PO DAILY #10 tab 02/16/17 Levofloxacin [Levaquin] 500 mg PO DAILY #4 tablet 02/16/17 Miconazole Nitrate [Monistat-7 Vaginal Cream -] 1 applic VG HS #1 tube 02/16/17 Ranolazine [Ranexa -] 500 mg PO BID #60 tab 02/16/17 Valsartan [Diovan] 80 mg PO DAILY #30 tablet 02/16/17 This patient is new to me today: No Emergency Visit: Yes ED Registration Date: 02/14/17 Care time: The patient presented to the Emergency Department on the above date and was hospitalized for further evaluation of their emergent condition. Critical Care patient: No - Discharge Referral Referred to [facility] No Physician Referral: Rom Dickens MD (Int Med)
[2017-02-16] MEDS ORDERED: MICONAZOLE NITRATE 2% VAGINAL CREAM 45 GM TUBE VG SCH (11:42)
[2017-02-16 11:45] VITALS: BP 147/65; PULSE 62; TEMP 98.2
[2017-02-16] MEDS ORDERED: PT OWN MED DRAWER 7, Y5N ONE (14:30)
== END 2017-02-16 15:03 | disposition home or self-care (01) | DRG 69 ==
LOC: JER 17:12 → JERBED 18:43 → J4S 22:16 → OBSVTOIN 02-14 15:46
PROVIDERS: ADMIT Internal Medicine; ATTEND Nurse Practitioner Acute Care
DX: G45.9 Transient cerebral ischemic attack, unspecified (principal); N39.0 Urinary tract infection, site not specified; N17.9 Acute kidney failure, unspecified; I25.2 Old myocardial infarction; E78.5 Hyperlipidemia, unspecified; E03.9 Hypothyroidism, unspecified; Z85.3 Personal history of malignant neoplasm of breast; R00.1 Bradycardia, unspecified; I12.9 Hypertensive chronic kidney disease with stage 1 through stage 4 chronic kidney disease, or unspecified chronic kidney disease; N18.9 Chronic kidney disease, unspecified; R55 Syncope and collapse; F32.9 Major depressive disorder, single episode, unspecified; F41.9 Anxiety disorder, unspecified; G93.89 Other specified disorders of brain; I95.9 Hypotension, unspecified; E53.8 Deficiency of other specified B group vitamins; R19.7 Diarrhea, unspecified; B96.89 Other specified bacterial agents as the cause of diseases classified elsewhere; B37.3 Candidiasis of vulva and vagina
CPT/HCPCS: 36415; 70450-TC; 70551-TC; 80048; 80053; 81003; 81015; 82465; 82550; 82607; 83036; 83718; 83721; 83735; 84100; 84295; 84443; 84478; 84484; 85025; 85610; 86593; 87045; 87046; 87086; 87186; 87205; 87324; 87449; 93005; 93010; 93306-TC; 93880-TC; 97116-GP; 97161-GP; 99285-25; G0378